=== PATIENT | female | born 1945 ===

== ENCOUNTER 2017-10-20 14:50 | Emergency (ER) | payer OTHER ==
[2017-10-20 15:49] VITALS: BP 182/69
--- NOTE | 2017-10-20 15:57 | UC ---
Upper Extremity HPI - HPI Summary HPI Summary: Pt presents with right rib pain s/p fall 3 days ago. She tells me that she was walking on the gravel and lost her footing - the grass was next to her so she lunged toward the grass to break her fall. Landed on her right ribs with her arm outstretched. She did not hit her head and was able to get up on her own power and continue with her day. Since that time has had pain in her right ribs. Denies SOB or difficulty breathing. - History of Current Complaint Chief Complaint: UCGeneralIllness Stated Complaint: S/P FALL RIGHT SIDE RIB/SHOULDER PAIN Time Seen by Provider: 10/20/17 15:57 Hx Obtained From: Patient Onset/Duration: Sudden Onset Severity Initially: Mild Severity Currently: Mild Pain Intensity: 4 Pain Scale Used: 0-10 Numeric Character: Aching - Allergies/Home Medications Allergies/Adverse Reactions: Allergies Allergy/AdvReac Type Severity Reaction Status Date / Time nitrofurantoin Allergy Severe kidneys Verified 10/20/17 15:56 [From Macrobid] sulfamethoxazole Allergy Intermediate Hives Verified 10/20/17 15:56 [From Bactrim] trimethoprim [From Bactrim] Allergy Intermediate Hives Verified 10/20/17 15:56 atorvastatin [From Lipitor] AdvReac GI Verified 10/20/17 15:56 bees Allergy Intermediate Shortness Uncoded 10/20/17 15:56 of Breath novacaine Allergy Intermediate Swelling Uncoded 10/20/17 15:56 Home Medications: Home Medications Insulin Glargine,Hum.rec.anlog [Lantus Solostar 5x3 ML PENS] 10 units SUBCUT BEDTIME 10/20/17 [History Confirmed 10/20/17] Losartan/Hydrochlorothiazide [Losartan-Hctz 100-12.5 mg Tab] 1 each PO DAILY [History Confirmed 10/20/17] metFORMIN* [Glucophage 1000 MG TAB *] 500 mg PO BID 10/20/17 [History Confirmed 10/20/17] PMH/Surg Hx/FS Hx/Imm Hx Endocrine History: Diabetes, Thyroid Disease Cardiovascular History: Hypertension - Surgical History Surgical History: Yes Surgery Procedure, Year, and Place: . thyroidectomy. bunionectomy - Family History Known Family History: Positive: Hypertension, Diabetes - Social History Occupation: Retired Lives: With Family Alcohol Use: None Substance Use Type: None Smoking Status (MU): Former Smoker Review of Systems Constitutional: Negative Skin: Negative Respiratory: Negative Cardiovascular: Negative Neurovascular: Negative Musculoskeletal: Other: - Right rib pain Neurological: Negative Psychological: Negative All Other Systems Reviewed And Are Negative: Yes Physical Exam - Summary Physical Exam Summary: GENERAL: NAD. WDWN. No pain distress. SKIN: No rashes, sores, ulcers, masses, lesions. NECK: Supple. Nontender. No lymphadenopathy. CHEST: CTAB. No r/r/w. No accessory muscle use. Breathing comfortably and in no distress. CV: RRR. Without m/r/g. Pulses intact. Brisk cap refill. MSK: TTP over right 5-7th rib area. FROM and 5/5 strength b/l UEs. NEURO: Alert. Sensations intact b/l UEs. PSYCH: Age appropriate behavior. Triage Information Reviewed: Yes Vital Signs: Initial Vital Signs Temp 98.7 F 10/20/17 15:41 Pulse 88 10/20/17 15:41 Resp 18 10/20/17 15:41 BP 182/69 10/20/17 15:41 Pulse Ox 100 10/20/17 15:41 Upper Extremity Course/Dx - Course Course Of Treatment: XR: IMPRESSION: No fracture of the right ribs is noted. No pneumothorax is noted. Suspect rib contusion. Pt will continue resting and taking tylenol prn. - Differential Dx/Diagnosis Provider Diagnoses: Right rib contusion. Fall Discharge - Sign-Out/Discharge Documenting (check all that apply): Discharge/Admit/Transfer - Discharge Plan Condition: Stable Disposition: HOME Patient Education Materials: Rib Contusion (ED) Referrals: Lisette Montana MD [Primary Care Provider] - Additional Instructions: If you develop a fever, shortness of breath, chest pain, new or worsening symptoms - please call your PCP or go to the ED. Your blood pressure was high at todays visit. Please see your primary provider within 4 weeks for recheck and re-evaluation. 1) May take tylenol as directed for pain. Apply heat to the area to help with pain as well - Billing Disposition and Condition Condition: STABLE Disposition: HOME
--- NOTE | 2017-10-20 17:25 | RAD ---
Indication: Right rib pain. 3 views of the right ribs] dual energy PA view of the chest demonstrates no mediastinal shift. Heart is of normal size and configuration. No definite rib fracture is identified. IMPRESSION: No fracture of the right ribs is noted. No pneumothorax is noted.
== END 2017-10-20 17:35 | disposition home or self-care (01) ==
LOC: UCCORT 14:50
DX: S20.20XA Contusion of thorax, unspecified, initial encounter (principal); W19.XXXA Unspecified fall, initial encounter; Y92.9 Unspecified place or not applicable; Z87.891 Personal history of nicotine dependence; Z88.2 Allergy status to sulfonamides; Z88.8 Allergy status to other drugs, medicaments and biological substances
CPT/HCPCS: 99211; G0463